=== PATIENT | female | born 1980 | race Caucasian/White ===

== ENCOUNTER 2022-12-29 20:38 | Emergency (ER) | payer OTHER, SELFPAY | END 2022-12-29 22:21 | disposition home or self-care (01) | LOC: BURERS 20:38 | DX: B34.9 Viral infection, unspecified (principal) | CPT/HCPCS: 71046; 87804 ==

== ENCOUNTER 2023-01-01 09:19 | Emergency (ER) | payer OTHER, SELFPAY | END 2023-01-01 09:56 | disposition home or self-care (01) | LOC: BURERS 09:19 | DX: J22 Unspecified acute lower respiratory infection (principal) | CPT/HCPCS: 99283 ==